=== PATIENT | female | born 1955 | race Caucasian/White ===

== ENCOUNTER 2020-11-29 21:27 | Emergency (ER) | payer MEDICARE, OTHER ==
[~2020-11-29] VITALS: Ht 167.6 cm; Wt 102.9 kg
[2020-11-29] MEDS ORDERED: SIMV20TA22 PO (21:41)
[2020-11-29] MEDS ORDERED: HYDR-3713 PO (21:41)
[2020-11-29] MEDS ORDERED: LISI20TA33 PO (21:41)
[2020-11-29] MEDS ORDERED: APAP500T10 PO (21:41)
[2020-11-29] MEDS ORDERED: IBUP1TAB6 PO (21:41)
[2020-11-29] MEDS ORDERED: OMEP1CAP73 PO (21:41)
[2020-11-29] MEDS ORDERED: CLIN150C15 PO (21:41)
[2020-11-29] MEDS ORDERED: oxyCODONE 5MG TAB PO ONE (22:40)
[2020-11-29] MEDS ORDERED: ONDANSETRON 4 MG TAB PO ONE (22:40)
[2020-11-29] MEDS ORDERED: ONDA4TAB6 PO (22:43)
[2020-11-29] MEDS ORDERED: OXYC-517 PO (22:43)
[2020-11-29 23:43] VITALS: BP 135/92
== END 2020-11-29 23:45 | disposition home or self-care (01) ==
LOC: M ED 21:27
DX: K04.7 Periapical abscess without sinus (principal); I10 Essential (primary) hypertension; E78.5 Hyperlipidemia, unspecified; Z88.0 Allergy status to penicillin; Z88.2 Allergy status to sulfonamides; Z79.899 Other long term (current) drug therapy

== ENCOUNTER 2021-01-03 14:13 | Emergency (ER) | payer MEDICARE, OTHER ==
[~2021-01-03] VITALS: Ht 167.6 cm; Wt 100.1 kg
[~2021-01-03 14:13] MED LIST: APAP500T10 PO; CLIN150C15 PO; HYDR-3713 PO; IBUP1TAB6 PO; LISI20TA33 PO; OMEP1CAP73 PO; ONDA4TAB6 PO; OXYC-517 PO; SIMV20TA22 PO
[2021-01-03 14:55] LABS: BASO # 0.1 10^3/uL (0.0-0.2); BASO % 1.3 % (0.0-1.0); EOS # 0.1 10^3/uL (0.0-0.5); EOS % 1.3 % (0.0-3.0); HEMATOCRIT 43.4 % (36.0-47.0); HEMOGLOBIN 14.2 g/dl (12.0-15.5); LYMPH # 1.9 10^3/uL (1.5-5.0); LYMPH % 30.8 % (24.0-44.0); MEAN CORPUSCULAR HEMOGLOBIN 29.6 pg (27.0-33.0); MEAN CORPUSCULAR HGB CONC 32.7 g/dl (32.0-36.5); MEAN CORPUSCULAR VOLUME 90.4 fl (80.0-96.0); MONO # 0.5 10^3/uL (0.0-0.8); MONO % 8.1 % (2.0-8.0); NEUTROPHILS # 3.7 10^3/uL (1.5-8.5); NEUTROPHILS % 58.2 % (36.0-66.0); PLATELET COUNT, AUTOMATED 335 10^3/uL (150-450); WHITE BLOOD COUNT 6.3 10^3/uL (4.0-10.0)
[2021-01-03 15:57] LABS: CALCIUM LEVEL 9.8 MG/DL (8.8-10.2); CREATININE FOR GFR 1.22 MG/DL (0.55-1.30); GLOMERULAR FILTRATION RATE 47.1 (>45); POTASSIUM SERUM 5.3 MEQ/L (3.5-5.1)
[2021-01-03] MEDS ORDERED: NS 1,000 ML IV ONE (16:40)
--- NOTE | 2021-01-03 17:46 | REPVR ---
PROCEDURE INFORMATION: Exam: CT Abdomen And Pelvis Without Contrast Exam date and time: 01/03/2021 5:02 PM Age: 65 years old Clinical indication: Abdominal pain; Additional info: Right flank pain TECHNIQUE: Imaging protocol: Computed tomography of the abdomen and pelvis without contrast. Radiation optimization: All CT scans at this facility use at least one of these dose optimization techniques: automated exposure control; mA and/or kV adjustment per patient size (includes targeted exams where dose is matched to clinical indication); or iterative reconstruction. COMPARISON: No relevant prior studies available. FINDINGS: Liver: Unremarkable. No mass. Gallbladder and bile ducts: Normal. No calcified stones. No ductal dilation. Pancreas: Unremarkable. No ductal dilation. Spleen: Unremarkable. No splenomegaly. Adrenal glands: Normal. No mass. Kidneys and ureters: There is an indeterminate mass measuring 3 cm within the left kidney lower pole. Follow-up evaluation with contrast enhanced CT scan of the abdomen is recommended. No renal stone or hydronephrosis. The right kidney and right ureter are unremarkable. Stomach and bowel: Large gastric hiatus hernia. The small bowel and colon are unremarkable. No bowel obstruction. Appendix: No evidence of appendicitis. Intraperitoneal space: No free air. No significant fluid collection. Vasculature: Mild atherosclerosis of the abdominal aorta. No aneurysm. Lymph nodes: No enlarged lymph nodes. Urinary bladder: Unremarkable as visualized. Reproductive: Unremarkable as visualized. Bones/joints: Degenerative spondylosis of the lumbar spine. No fracture or suspicious bone lesion. Soft tissues: Unremarkable. IMPRESSION: 1. No acute abnormality. 2. Indeterminate 3 cm diameter right renal mass. Further evaluation with contrast enhanced CT scan of the abdomen is recommended. 3. Large gastric hiatus hernia. COMMENTS: Consistent with the [employer]'s Incidental Findings Committee white paper (J Am Joyce Radiol 2018): Any incidental renal lesion less than 1 cm or classified as too small to characterize, or any incidental cystic renal lesion characterized as simple-appearing, is likely benign. No follow-up imaging is recommended for these lesions per consensus recommendations based on imaging criteria. Electronically signed by: Justin Rosenbaum On 01/03/2021 17:46:03 PM
[2021-01-03] MEDS ORDERED: ISOVUE-370 76% 100ML VIAL As Ordered ONE (19:00)
--- NOTE | 2021-01-03 19:24 | REPVR ---
PROCEDURE INFORMATION: Exam: CT Abdomen With Contrast Exam date and time: 01/03/2021 6:59 PM Age: 65 years old Clinical indication: Abnormal findings; Abnormal radiologic finding of the abdomen; Radiologic exam and body structure: CT ap w. O; Patient HX: Lt renal mass on todays CT; Additional info: Left renal mass unspecified TECHNIQUE: Imaging protocol: Computed tomography images of the abdomen with intravenous contrast. Radiation optimization: All CT scans at this facility use at least one of these dose optimization techniques: automated exposure control; mA and/or kV adjustment per patient size (includes targeted exams where dose is matched to clinical indication); or iterative reconstruction. Contrast material: ISOVUE 370; Contrast volume: 100 ml; Contrast route: INTRAVENOUS (IV); COMPARISON: CT ABD PELVIS W/O CONTRAST 01/03/2021 4:55 PM FINDINGS: Liver: Unremarkable. No mass. Gallbladder and bile ducts: Normal. No calcified stones. No ductal dilation. Pancreas: Unremarkable. No ductal dilation. Spleen: Normal. No splenomegaly. Adrenals: Normal. No mass. Kidneys and ureters: There is an enhancing mass measuring 3 cm within the inferior pole of the left kidney. Urologic consultation is recommended. Either further assessment with MRI or biopsy is recommended. No left renal stone or hydronephrosis. The right kidney is normal. Stomach and bowel: Moderate size gastric hiatus hernia. Intraperitoneal space: Unremarkable. No free air. No significant fluid collection. Lymph nodes: Unremarkable. No enlarged lymph nodes. Vasculature: Unremarkable. No abdominal aortic aneurysm. Bones/joints: Unremarkable.No acute fracture. Soft tissues: Unremarkable. IMPRESSION: Enhancing left renal mass measuring 3 cm in diameter. Urologic consultation is recommended. Either biopsy or further characterization with MRI is recommended. Electronically signed by: Justin Rosenbaum On 01/03/2021 19:24:26 PM
[2021-01-03 19:57] VITALS: BP 121/78
--- NOTE | 2021-01-04 06:35 | ED PDOC ---
Post-Departure Follow-Up ct abd/p with and without contrast faxed to [facility]. dr kat, dr alonso for f u mlg Stefan Erazo MD January 04, 2021 06:35
== END 2021-01-03 20:01 | disposition home or self-care (01) ==
LOC: M ED 14:13
DX: N28.89 Other specified disorders of kidney and ureter (principal); M54.5 Low back pain; K44.9 Diaphragmatic hernia without obstruction or gangrene; I10 Essential (primary) hypertension; K58.9 Irritable bowel syndrome, unspecified; Z88.0 Allergy status to penicillin; Z88.2 Allergy status to sulfonamides; Z79.899 Other long term (current) drug therapy
CPT/HCPCS: 74160; 74176; 80048; 81001; 83605; 85025; 87040; 87077; 96360; 96361; 99283; Q9967

== ENCOUNTER → 2021-01-21 | Outpatient (CLI) | payer MEDICARE, OTHER ==
--- NOTE | 2021-01-21 08:25 | REP ---
INDICATION: CKD, EVAL FOR STENOSIS COMPARISON: None TECHNIQUE: Real time wolf scale ultrasound examination using curved array transducer followed by color Doppler evaluation of the renal vasculature. FINDINGS: Right kidney measures 9.5 x 4.4 x 4.0 cm. And appears normal. Left kidney measures 11.5 x 4.8 x 4.3 cm and there appears to be a 3.3 cm lower pole mass requiring further investigation. Color Doppler evaluation. Peak aortic velocity: 97.2 centimeters/second RIGHT KIDNEY Renal arterial velocity: 117 centimeters/second Renal-aortic ratio: 1.2 Intrarenal resistive indices: 0.66-0.69 Intrarenal acceleration times: 0.038-0.040 LEFT KIDNEY Renal arterial velocity: 97.7 centimeters/second Renal-aortic ratio: 1.0 Intrarenal resistive indices: 0.63-0.70 Intrarenal acceleration times: 0.032-0.046 IMPRESSION: 1. Previously documented left lower pole renal mass lesion requires further investigation. 2. Doppler interegation without sonographic evidence for renal arterial stenosis. <Electronically signed by Jaylen Le > 01/21/21 [id number]
== END ==
LOC: M RAD 07:24
PROVIDERS: ATTEND Family Medicine
DX: N18.9 Chronic kidney disease, unspecified (principal)

== ENCOUNTER 2021-03-16 05:58 | Inpatient (IN) | payer MEDICARE, OTHER ==
[~2021-03-16] VITALS: Ht 167.6 cm; Wt 99.1 kg
[2021-03-16] VITALS (7 sets, daily range): BP systolic 104–116; BP diastolic 57–62
[~2021-03-16 05:58] MED LIST changes: +AZIT-12 PO; +CLAR10CA3 PO; +D31000TA2 PO; +FLON1SPR; +VITATAB73 PO
[2021-03-16] MEDS ORDERED: CIPROFLOXACIN 400 MG in IV 1 EA IV ONE (06:00)
[2021-03-16] MEDS ORDERED: LIDOCAINE 1% MDV 20ML VIAL SQ PRN (06:00)
[2021-03-16] MEDS ORDERED: LR 1,000 ML IV ONE (06:00)
[2021-03-16] MEDS ORDERED: EMLA CREAM 5GM TUBE (LIDOCAINE/PRILOCAINE) TOP PRN (06:00)
[2021-03-16] MEDS ORDERED: BUPIVACAINE HCL 0.25% 30ML VIAL As Ordered ONE (07:08)
[2021-03-16] MEDS ORDERED: LIDOCAINE 1% SDV 30ML VIAL As Ordered ONE (07:08)
[2021-03-16] MEDS ORDERED: MIDAZOLAM INJ 2MG/2ML VIAL (J2250 PER 1MG) As Ordered ONE (07:17)
[2021-03-16] MEDS ORDERED: ROCURONIUM BROMIDE 50 MG/5 ML VIAL As Ordered ONE ×2 (07:17→10:22)
[2021-03-16] MEDS ORDERED: LIDOCAINE 2% 100MG/5ML SDV (FOR ANES.) As Ordered ONE (07:17)
[2021-03-16] MEDS ORDERED: fentaNYL 100 MCG/2 ML INJECTION (J3010) As Ordered ONE ×2 (07:17→08:19)
[2021-03-16] MEDS ORDERED: ONDANSETRON 4MG/2ML VIAL As Ordered ONE (07:17)
[2021-03-16] MEDS ORDERED: propofoL 200 MG/20 ML VIAL As Ordered ONE (07:17)
[2021-03-16] MEDS ORDERED: METOCLOPRAMIDE INJ 10MG/2ML VIAL (J2765 PER 1) As Ordered ONE (07:17)
[2021-03-16] MEDS ORDERED: SCOPOLAMINE 1MG TRANSDERMAL PATCH TOP ONE (07:20)
[2021-03-16] MEDS ORDERED: PERCOCET 5MG/325MG TAB PO PRN (07:25)
[2021-03-16] MEDS ORDERED: MORPHINE 2 MG/ML 1ML VIAL (J2270) IV PRN (07:25)
[2021-03-16] MEDS ORDERED: ceFAZolin SOD 2 GM in IV 1 EA IV ONE (07:25)
[2021-03-16] MEDS ORDERED: ACETAMINOPHEN TAB 650MG DOSE (2X325MG) PO PRN (07:25)
[2021-03-16] MEDS ORDERED: MANNITOL 25% 12.5 GM/50 ML VIAL (J2150) As Ordered ONE (09:37)
[2021-03-16] MEDS ORDERED: HYDROmorphone HCL 2 MG/ML 1ML VIAL (J1170) As Ordered ONE (09:53)
[2021-03-16] MEDS ORDERED: ACETAMINOPHEN 1000MG 100ML IV BTL (OFIRMEV) (J0131 PER 10MG) As Ordered ONE (09:53)
[2021-03-16] MEDS ORDERED: dexameTHASONE 4 MG/ML 1ML VIAL (J1100 PER 1MG) As Ordered ONE (09:53)
[2021-03-16] MEDS ORDERED: SUGAMMADEX SODIUM 500 MG/5 ML VIAL (BRIDION) As Ordered ONE (10:59)
[2021-03-16] MEDS ORDERED: fentaNYL 100 MCG/2 ML INJECTION (J3010) IV PRN (12:10)
[2021-03-16] MEDS ORDERED: ONDANSETRON 4MG/2ML VIAL IV PRN (12:10)
[2021-03-16] MEDS ORDERED: LR 1,000 ML IV SCH (12:10)
--- NOTE | 2021-03-16 12:22 | ROOPDOC ---
[facility] Report Of Operation Report of Operation DATE OF PROCEDURE: 03/16/21 PREPROCEDURE DIAGNOSIS: Left renal neoplasm. POSTPROCEDURE DIAGNOSIS: Left renal neoplasm. PROCEDURE: Left robotic-assisted laparoscopic partial nephrectomy with intraoperative ultrasound for tumor mapping. SURGEON: Edie Otero MD LEAD NET SOFTWARE DEVELOPER: Tequila Sanchez ANESTHESIA: General OPERATIVE INDICATIONS: This is a 65 year old female recently found to have an approximately 3.3cm enhancing mass on her left kidney. She was brought to the operating room today for treatment. DESCRIPTION OF PROCEDURE: The patient was brought to the operating room where general anesthesia was induced. Prophylactic antibiotics were infused. A Perez catheter was inserted into the bladder under sterile conditions and the balloon was filled with sterile water. She was then placed in the right lateral decubitus position. All pressure points were appropriately padded and an axillary roll was placed. We then secured the patient to the table with tape. Her abdomen was then prepped and draped in the usual sterile fashion. Next, an 8mm incision was made in line with the 11th rib along the lateral border of the rectus. Pneumoperitoneum was achieved with a Veress needle. Next, an 8mm port was placed for the camera. At this point, the left robotic port was placed off the costal margin. Two right hand robotic ports were then placed with one between the anterior superior iliac spine and the hip and the other one just caudal to the camera port. Last the 12 mm drafter assistant port was placed inferior and medial to the camera port. The robot was then docked. The spleen was then dissected off of Gerota's fascia. Next the left colon was dissected off of Gerota's fascia. At this point the left gonadal vein was identified and it was traced cephalad to its insertion into the left renal vein. This was carefully dissected and just inferior to the renal vein, the left renal artery was identified. In order to reach the artery I ligated the gonadal vein with Weck clips and transected in between the clips. The renal artery was carefully dissected. Next I had our automotive customer experience advisor administer 12.5g of mannitol. Gerota's fascia was then opened and I defatted the kidney. On the inferior aspect of the kidney the tumor was seen. Ultrasound was then utilized to richi the boundaries of the mass. Next 2 bulldog clamps were placed on the renal artery and we began resecting the mass. The mass was resected completely and it appeared that we had a good margin. Once the mass was removed, the renorrhaphy was performed first by ligating all vessels in the base of resection with a #2-0 Vicryl suture using figure of eight stitches. The capsule of the kidney was then reapproximated using #0-vicryl suture with Weck clips to cinch down the suture. Once this was done the clamps were removed and hemostasis was excellent. The warm ischemia time was 34 minutes. Next Gloria was applied to the resection bed and the tumor was placed in an endocatch bag. A Andrew Rowell drain was positioned just lateral to the kidney. The robot was undocked after confirming hemostasis within the abdomen. The specimen was then extracted from the 12mm port site after it was extended. The fascia of this incision was then closed with a running #0 Vicryl suture. The abdomen was observed again and there was no bleeding from the left kidney or the hilum. We then removed all the ports under direct vision and there was no bleeding from any of the port sites. At this point, all the incisions were thoroughly irrigated. We then closed the skin of each site using a running #4-0 subcuticular Monocryl stitch. The Andrew Rowell drain was secured to the skin using #3-0 Ethilon suture. Local anesthetic was then applied to each incision and Dermabond was then applied and this marked the conclusion of the procedure. The patient was then taken out of the left lateral decubitus position, awakened from anesthesia and transported to the recovery room in stable condition. ESTIMATED BLOOD LOSS: 200 mL INTRAOPERATIVE COMPLICATIONS: None SPECIMENS: Left renal neoplasm WARM ISCHEMIA TIME: 34 minutes NORMAL LEFT RENAL PARENCHYMA SPARED: approximately 95% PLAN: The patient will be admitted to the hospital postoperatively and she will be discharged home once her renal function is stable and she is tolerating a regular diet. EDIE OTERO MD Mar 16, 2021 07:41
[2021-03-16] MEDS: oxyCODONE 5MG TAB PO PRN ×2 (12:25→12:56)
[2021-03-16] MEDS: MEPERIDINE INJ 25 MG/ML VIAL (J2175) IV PRN ×2 (12:26→12:33)
[2021-03-16] MEDS: ONDANSETRON 4MG/2ML VIAL IV PRN ×2 (12:26→21:02)
[2021-03-16 12:38] LABS: HEMATOCRIT 39.6 % (36.0-47.0); HEMOGLOBIN 13.3 g/dl (12.0-15.5); MEAN CORPUSCULAR HEMOGLOBIN 29.7 pg (27.0-33.0); MEAN CORPUSCULAR HGB CONC 33.6 g/dl (32.0-36.5); MEAN CORPUSCULAR VOLUME 88.4 fl (80.0-96.0); PLATELET COUNT, AUTOMATED 286 10^3/uL (150-450); RED BLOOD COUNT 4.48 10^6/uL (4.00-5.40); WHITE BLOOD COUNT 13.5 10^3/uL (4.0-10.0)
[2021-03-16 13:05] LABS: CALCIUM LEVEL 8.9 MG/DL (8.8-10.2); CREATININE FOR GFR 1.3 MG/DL (0.55-1.30); GLOMERULAR FILTRATION RATE 43.8 (>45); POTASSIUM SERUM 4.4 MEQ/L (3.5-5.1)
[2021-03-16] MEDS: NS 1,000 ML IV SCH (14:10)
[2021-03-16] MEDS: METOCLOPRAMIDE INJ 10MG/2ML VIAL (J2765 PER 1) IV PRN (15:45)
[2021-03-16] MEDS: ceFAZolin SOD 1 GM in D5W MINI-BAG PLUS 50 ML IV SCH ×2 (15:45→23:16)
[2021-03-16] MEDS: PERCOCET 5MG/325MG TAB PO PRN ×2 (17:43→23:18)
[2021-03-16] MEDS ORDERED: lisinopriL 40 MG TAB PO SCH (21:00)
[2021-03-16] MEDS ORDERED: OMEPRAZOLE 20 MG CAP PO SCH (21:00)
[2021-03-16] MEDS ORDERED: SIMVASTATIN 20 MG TAB PO SCH (21:00)
[2021-03-16] MEDS: DOCUSATE SODIUM 100MG CAPSULE PO SCH (21:02)
[2021-03-17] VITALS: BP 107/65
[2021-03-17] MEDS: METOCLOPRAMIDE INJ 10MG/2ML VIAL (J2765 PER 1) IV PRN (02:26)
[2021-03-17 04:00] VITALS: BP 108/64
[2021-03-17] MEDS: PERCOCET 5MG/325MG TAB PO PRN ×2 (04:05→09:24)
[2021-03-17 06:00] VITALS: BP 109/64
[2021-03-17] MEDS: NS 1,000 ML IV SCH (06:07)
[2021-03-17 06:42] LABS: HEMATOCRIT 35.7 % (36.0-47.0); MEAN CORPUSCULAR HEMOGLOBIN 30.1 pg (27.0-33.0); MEAN CORPUSCULAR HGB CONC 33.6 g/dl (32.0-36.5); MEAN CORPUSCULAR VOLUME 89.5 fl (80.0-96.0); PLATELET COUNT, AUTOMATED 318 10^3/uL (150-450); RED BLOOD COUNT 3.99 10^6/uL (4.00-5.40); WHITE BLOOD COUNT 16.5 10^3/uL (4.0-10.0)
[2021-03-17 07:07] LABS: CALCIUM LEVEL 9.1 MG/DL (8.8-10.2); CREATININE FOR GFR 1.21 MG/DL (0.55-1.30); GLOMERULAR FILTRATION RATE 47.5 (>45); POTASSIUM SERUM 4.6 MEQ/L (3.5-5.1)
--- NOTE | 2021-03-17 07:49 | IPNPDOC ---
Subjective Review oF Systems Chief Complaint The patient is a 65-year-old female admitted with a reason for visit of Renal Mass. Events since Last Encounter No acute events o/n. Had nausea yesterday, but this has improved. No emesis. Has not ambulated yet. Good pain control. No f/c/ns. Objective Physical Examination General Exam: Alert, Cooperative, No Acute Distress ABDOMEN EXAM: Soft, Tenderness (mild), Other (incisions clean/dry/intact; GÉNESIS w/ serosanguinous output) Skin Exam: Nl turgor and temperature Neuro Exam: Normal Speech Psych Exam: Mental status NL, Mood NL Other physical findings catheter draining clear yellow urine Vital Signs/I&O Vital Signs Date Time Temp Pulse Resp B/P (MAP) Pulse Ox O2 Delivery O2 Flow Rate FiO2 03/17/21 06:00 97.8 80 16 109/64 (79) 94 Room Air 03/16/21 12:56 2.0 I&O- Last 24 Hours up to 6 AM 03/17/21 06:00 Intake Total 4310 ml Output Total 1685 ml Balance 2625 ml Laboratory Data Labs 24H Laboratory Tests 2 03/16/21 12:25: Nucleated Red Blood Cells % (auto) 0.0, Anion Gap 5L, Glomerular Filtration Rate 43.8L, Calcium Level 8.9 03/17/21 05:59: Nucleated Red Blood Cells % (auto) 0.0, Anion Gap 8, Glomerular Filtration Rate 47.5, Calcium Level 9.1 CBC/BMP Laboratory Tests 03/16/21 12:25 03/17/21 05:59 Assessment/Plan Date Seen The patient was seen on 03/17/21. Patient Summary This is a 65 y/o F POD1 s/p L robotic partial nephrectomy. Doing well. Hb stable at 12. Cr 1.2. Good UOP. Normal GÉNESIS output. Plan/VTE VTE Prophylaxis Ordered?: Yes VTE Exclusion Mechanical Proph: N/A:VTE Prophy Ordered Plan - d/c Perez - d/c IVF - percocet prn pain - continue home meds - ambulate - incentive spirometry - SCDs when in bed - strict I/Os - advance diet as tolerated - possible discharge home this afternoon EDIE OTERO MD Mar 17, 2021 07:49
[2021-03-17] MEDS ORDERED: FLUTICASONE PROP 0.05% NASAL SPRAY 16 GM (FLONASE) NARES SCH (09:00)
[2021-03-17] MEDS: DOCUSATE SODIUM 100MG CAPSULE PO SCH (09:24)
[2021-03-17] MEDS: ONDANSETRON 4MG/2ML VIAL IV PRN (09:24)
[2021-03-17 10:00] VITALS: BP 106/64
[2021-03-17 14:00] VITALS: BP 107/64
[2021-03-17] MEDS ORDERED: PERCOCET PO (16:22)
[2021-03-17] MEDS ORDERED: ZOFR4TAB16 PO (16:22)
--- NOTE | 2021-03-17 17:05 | DSES ---
DISCHARGE SUMMARY DATE OF ADMISSION: 03/16/2021 DATE OF DISCHARGE: 03/17/2021 PREOPERATIVE ADMITTING PHYSICIAN: Dr. Sam Encarnacion DISCHARGING PHYSICIAN: Dr. Sam Encarnacion ADMISSION DIAGNOSIS: Left renal neoplasm. DISCHARGE DIAGNOSIS: Left renal cell carcinoma. PROCEDURE PERFORMED: A left robotic-assisted laparoscopic partial nephrectomy. HISTORY OF PRESENT ILLNESS: This is a 65-year-old female who underwent the above-listed procedure for a left renal neoplasm. She was admitted to the hospital postoperatively. HOSPITALIZATION COURSE: The patient underwent the above-listed procedure on 03/16/2021. She was admitted postoperatively. Her postoperative course was unremarkable. On postoperative day #1, all of her labs were within acceptable limits. Specifically, her hemoglobin was stable at 12. Her serum creatinine was 1.2. She had very good urine output and normal output from her Andrew-Rowell drain. Her Perez catheter was removed on postoperative day #1, and she voided without any difficulty. She started ambulating and did so without difficulty. Her pain was well controlled with oral pain medication. Her diet was advanced, and she tolerated a regular diet. By the afternoon of postoperative day #1, she was deemed ready for discharge home. Her Andrew-Rowell drain was removed, since she had normal outputs. She was discharged home with the plan for her to followup in the urology clinic in about 10 days for pathology results. [place]
== END 2021-03-17 17:05 | disposition home or self-care (01) | DRG 658 ==
LOC: M OR 05:58 → M MSPAV 14:55
PROVIDERS: ADMIT Urology; ATTEND Urology
PROC: BT42ZZZ Ultrasonography of Left Kidney (ICD-10-PCS; 2021-03-16)
PROC: 8E0W4CZ Robotic Assisted Procedure of Trunk Region, Percutaneous Endoscopic Approach (ICD-10-PCS; 2021-03-16)
PROC: 0TB14ZZ Excision of Left Kidney, Percutaneous Endoscopic Approach (ICD-10-PCS; principal; 2021-03-16 07:30)
DX: C64.1 Malignant neoplasm of right kidney, except renal pelvis (principal); E55.9 Vitamin D deficiency, unspecified; I12.9 Hypertensive chronic kidney disease with stage 1 through stage 4 chronic kidney disease, or unspecified chronic kidney disease; N18.31 Chronic kidney disease, stage 3a

== ENCOUNTER → 2021-10-26 | Outpatient (CLI) | payer MEDICARE, OTHER ==
[~2021-10-26] MED LIST changes: -CLIN150C15 PO; +CLIN150C17 PO; -D31000TA2 PO; +GASTROGRAFIN SOLUTION 30ML (Q9963) As Ordered ONE; +ISOVUE-370 76% 100ML VIAL As Ordered ONE; +PERCOCET PO; +VITA100093 PO; +ZOFR4TAB16 PO
== END ==
LOC: M RAD 12:27
PROVIDERS: ATTEND Urology
DX: C64.9 Malignant neoplasm of unspecified kidney, except renal pelvis (principal)
CPT/HCPCS: 71046; 74177; Q9963; Q9967

== ENCOUNTER 2021-11-15 11:30 | Day surgery (SDC) | payer MEDICARE, OTHER ==
[~2021-11-15] VITALS: Ht 170.2 cm; Wt 96.6 kg
[~2021-11-15 11:30] MED LIST changes: +D 1010002 PO; +DICY20TA3 PO; +DOCU-153 PO; -GASTROGRAFIN SOLUTION 30ML (Q9963) As Ordered ONE; -ISOVUE-370 76% 100ML VIAL As Ordered ONE; +LISI40TA4 PO; +NS 1,000 ML IV ONE; +SUPETAB PO
[2021-11-15] MEDS ORDERED: LIDOCAINE 2% 100MG/5ML SDV (FOR ANES.) As Ordered ONE (13:30)
[2021-11-15] MEDS ORDERED: propofoL 200 MG/20 ML VIAL As Ordered ONE ×2 (13:30→13:36)
[2021-11-15] MEDS ORDERED: LABETALOL 100MG/20ML VIAL As Ordered ONE (13:36)
[2021-11-15 14:31] VITALS: BP 133/62
== END 2021-11-15 14:33 | disposition home or self-care (01) ==
LOC: M OPP 11:30
PROVIDERS: ATTEND Internal Medicine Gastroenterology
DX: Z12.11 Encounter for screening for malignant neoplasm of colon (principal); Z86.010 Personal history of colon polyps; Z80.0 Family history of malignant neoplasm of digestive organs; D12.2 Benign neoplasm of ascending colon; K57.30 Diverticulosis of large intestine without perforation or abscess without bleeding; K64.8 Other hemorrhoids; Z79.899 Other long term (current) drug therapy; Z88.0 Allergy status to penicillin; Z88.1 Allergy status to other antibiotic agents; Z88.2 Allergy status to sulfonamides; Z85.528 Personal history of other malignant neoplasm of kidney; N18.30 Chronic kidney disease, stage 3 unspecified; Z87.891 Personal history of nicotine dependence

== ENCOUNTER → 2022-05-24 | Outpatient (CLI) | payer MEDICARE, OTHER ==
[~2022-05-24] MED LIST changes: -NS 1,000 ML IV ONE
== END ==
LOC: M RAD 14:33
PROVIDERS: ATTEND Nurse Practitioner Family
DX: N18.32 Chronic kidney disease, stage 3b (principal)

== ENCOUNTER 2022-09-04 21:45 | Emergency (ER) | payer MEDICARE, OTHER ==
[~2022-09-04] VITALS: Ht 167.6 cm; Wt 100.4 kg
[2022-09-04] MEDS ORDERED: VITA500C24 PO (22:13)
[2022-09-05 03:49] VITALS: BP 136/81
== END 2022-09-05 04:08 | disposition left against medical advice (07) ==
LOC: M ED 21:45
DX: Z53.21 Procedure and treatment not carried out due to patient leaving prior to being seen by health care provider (principal)

== ENCOUNTER → 2022-11-02 | Outpatient (CLI) | payer MEDICARE, OTHER ==
[~2022-11-02] MED LIST changes: +ISOVUE-370 76% 100ML VIAL As Ordered ONE; +VITA500C24 PO
== END ==
LOC: M RAD 13:23
PROVIDERS: ATTEND Urology
DX: C64.9 Malignant neoplasm of unspecified kidney, except renal pelvis (principal); K76.0 Fatty (change of) liver, not elsewhere classified
CPT/HCPCS: 71046; 74170; Q9967

== ENCOUNTER → 2023-01-03 | Outpatient (REF) | payer MEDICARE, OTHER ==
[~2023-01-03] MED LIST changes: -ISOVUE-370 76% 100ML VIAL As Ordered ONE
== END ==
LOC: M LAB REF 17:38
PROVIDERS: ATTEND Internal Medicine Endocrinology, Diabetes & Metabolism
DX: R89.6 Abnormal cytological findings in specimens from other organs, systems and tissues (principal); E04.2 Nontoxic multinodular goiter

== ENCOUNTER → 2023-04-13 | Outpatient (REF) | payer MEDICARE, OTHER | LOC: M LAB REF 17:23 | PROVIDERS: ATTEND Internal Medicine Endocrinology, Diabetes & Metabolism | DX: E04.2 Nontoxic multinodular goiter (principal) ==

== ENCOUNTER → 2023-07-06 | Outpatient (CLI) | payer MEDICARE, OTHER | LOC: M WHC 10:03 | PROVIDERS: ATTEND Internal Medicine Gastroenterology | DX: R13.10 Dysphagia, unspecified (principal) ==

== ENCOUNTER 2023-08-29 10:43 | Day surgery (SDC) | payer MEDICARE, OTHER ==
[~2023-08-29] VITALS: Ht 167.6 cm; Wt 94.3 kg
[~2023-08-29 10:43] MED LIST changes: +AMIT10TA7 PO; +CARA1TAB6 PO; +LIDOCAINE 2% 100MG/5ML SDV (FOR ANES.) As Ordered ONE; +MAG100TA PO; +MM S100C PO; +NS 1,000 ML IV ONE; +propofoL 200 MG/20 ML VIAL As Ordered ONE
[2023-08-29] MEDS ORDERED: fentaNYL 100 MCG/2 ML INJECTION As Ordered ONE (11:58)
[2023-08-29 12:38] VITALS: TEMP 97
[2023-08-29 13:01] VITALS: BP 140/76; O2SAT 98
== END 2023-08-29 13:03 | disposition home or self-care (01) ==
LOC: M OPP 10:43
PROVIDERS: ATTEND Internal Medicine Gastroenterology
DX: Z12.11 Encounter for screening for malignant neoplasm of colon (principal); Z86.010 Personal history of colon polyps; Z80.0 Family history of malignant neoplasm of digestive organs; D37.4 Neoplasm of uncertain behavior of colon; K31.89 Other diseases of stomach and duodenum; K29.80 Duodenitis without bleeding; K30 Functional dyspepsia; K44.9 Diaphragmatic hernia without obstruction or gangrene; R14.0 Abdominal distension (gaseous); Z85.59 Personal history of malignant neoplasm of other urinary tract organ; Z85.528 Personal history of other malignant neoplasm of kidney; Z79.1 Long term (current) use of non-steroidal anti-inflammatories (NSAID); Z79.02 Long term (current) use of antithrombotics/antiplatelets; Z79.2 Long term (current) use of antibiotics; Z79.899 Other long term (current) drug therapy; Z88.0 Allergy status to penicillin; Z88.1 Allergy status to other antibiotic agents; Z88.2 Allergy status to sulfonamides
CPT/HCPCS: 43239; 88305; G0105; J3010

== ENCOUNTER → 2023-09-05 | Outpatient (CLI) | payer MEDICARE, OTHER ==
[~2023-09-05] MED LIST changes: -LIDOCAINE 2% 100MG/5ML SDV (FOR ANES.) As Ordered ONE; -NS 1,000 ML IV ONE; -propofoL 200 MG/20 ML VIAL As Ordered ONE
== END ==
LOC: M RAD 11:43
PROVIDERS: ATTEND Internal Medicine Gastroenterology
DX: R10.13 Epigastric pain (principal)
CPT/HCPCS: 78227; A9537

== ENCOUNTER → 2023-10-09 | Outpatient (CLI) | payer MEDICARE, OTHER ==
[~2023-10-09] MED LIST changes: -DOCU-153 PO; +PROHANCE 279.3MG/ML 15ML VIAL As Ordered ONE; +PROHANCE 279.3MG/ML 5ML VIAL As Ordered ONE; +STOO100C30 PO
== END ==
LOC: M RAD 08:48
PROVIDERS: ATTEND Internal Medicine Gastroenterology
DX: K80.20 Calculus of gallbladder without cholecystitis without obstruction (principal); R10.13 Epigastric pain
CPT/HCPCS: A9576; C8902

== ENCOUNTER → 2023-11-07 | Outpatient (CLI) | payer MEDICARE, OTHER ==
[~2023-11-07] MED LIST changes: +ISOVUE-370 76% 100ML VIAL As Ordered ONE; -PROHANCE 279.3MG/ML 15ML VIAL As Ordered ONE; -PROHANCE 279.3MG/ML 5ML VIAL As Ordered ONE
== END ==
LOC: M RAD 09:32
PROVIDERS: ATTEND Urology
DX: C64.9 Malignant neoplasm of unspecified kidney, except renal pelvis (principal)
CPT/HCPCS: 71046; 74170; Q9967

== ENCOUNTER → 2024-01-11 | Outpatient (CLI) | payer MEDICARE, OTHER ==
[~2024-01-11] MED LIST changes: +DICY1CAP8 PO; -ISOVUE-370 76% 100ML VIAL As Ordered ONE; +ONDA-83 PO
== END ==
LOC: M EKG 07:59
PROVIDERS: ATTEND Anesthesiology
DX: Z01.818 Encounter for other preprocedural examination (principal)

== ENCOUNTER 2024-01-16 11:16 | Day surgery (SDC) | payer MEDICARE, OTHER ==
[~2024-01-16] VITALS: Ht 167.6 cm; Wt 95.7 kg
[~2024-01-16 11:16] MED LIST changes: +ONDA-282 PO; -ONDA4TAB6 PO
[2024-01-16] MEDS: LR 1,000 ML IV SCH (12:11)
[2024-01-16] MEDS: SCOPOLAMINE 1MG TRANSDERMAL PATCH TOP ONE (13:26)
[2024-01-16] MEDS ORDERED: LIDOCAINE 2% 100MG/5ML SDV (FOR ANES.) As Ordered ONE (14:03)
[2024-01-16] MEDS ORDERED: ROCURONIUM BROMIDE 50MG/5ML VIAL As Ordered ONE (14:03)
[2024-01-16] MEDS ORDERED: ACETAMINOPHEN 1000MG 100ML IV BAG As Ordered ONE (14:03)
[2024-01-16] MEDS ORDERED: ONDANSETRON 4MG 2ML VIAL As Ordered ONE (14:03)
[2024-01-16] MEDS ORDERED: fentaNYL 100 MCG/2 ML INJECTION As Ordered ONE (14:03)
[2024-01-16] MEDS ORDERED: propofoL 200 MG/20 ML VIAL As Ordered ONE (14:03)
[2024-01-16] MEDS ORDERED: MIDAZOLAM INJ 2MG/2ML VIAL As Ordered ONE (14:04)
[2024-01-16] MEDS ORDERED: METOCLOPRAMIDE INJ 10MG/2ML VIAL As Ordered ONE (14:57)
[2024-01-16] MEDS: ceFAZolin SOD 2 GM in IV 1 EA IV ONE (15:00)
[2024-01-16] MEDS ORDERED: HYDROmorphone HCL 2MG/ML 1ML VIAL As Ordered ONE (15:24)
[2024-01-16] MEDS ORDERED: SUGAMMADEX SODIUM 500 MG/5 ML VIAL (BRIDION) As Ordered ONE (15:33)
[2024-01-16] MEDS ORDERED: LABETALOL 100MG/20ML VIAL As Ordered ONE (15:44)
[2024-01-16] MEDS: ISOVUE-300 61% 100ML VIAL As Ordered ONE (15:52)
[2024-01-16] MEDS: GLUCAGON INJ 1MG VIAL As Ordered ONE (15:52)
[2024-01-16] MEDS ORDERED: fentaNYL 100 MCG/2 ML INJECTION IV PRN (15:55)
[2024-01-16] MEDS ORDERED: LR 1,000 ML IV SCH (15:55)
[2024-01-16] MEDS ORDERED: HYDROMORPHONE HCL 0.5 MG/ 0.5 ML SYRINGE IV PRN (15:55)
[2024-01-16] MEDS ORDERED: NS 1,000 ML IV SCH (16:05)
[2024-01-16] MEDS ORDERED: PERCOCET 5MG/325MG TAB PO PRN (16:05)
[2024-01-16] MEDS: ONDANSETRON 4MG 2ML VIAL IV PRN (16:29)
[2024-01-16] MEDS: oxyCODONE 5MG TAB PO PRN (16:57)
[2024-01-16 18:10] VITALS: BP 136/82; TEMP 97; O2SAT 96
== END 2024-01-16 18:12 | disposition home or self-care (01) ==
LOC: M SDC 11:16
PROVIDERS: ATTEND Surgery
DX: K80.20 Calculus of gallbladder without cholecystitis without obstruction (principal); I12.9 Hypertensive chronic kidney disease with stage 1 through stage 4 chronic kidney disease, or unspecified chronic kidney disease; N18.30 Chronic kidney disease, stage 3 unspecified; E03.9 Hypothyroidism, unspecified; E78.5 Hyperlipidemia, unspecified; K57.92 Diverticulitis of intestine, part unspecified, without perforation or abscess without bleeding; K44.9 Diaphragmatic hernia without obstruction or gangrene; K58.8 Other irritable bowel syndrome; K21.9 Gastro-esophageal reflux disease without esophagitis; B18.2 Chronic viral hepatitis C; Z79.899 Other long term (current) drug therapy; Z85.528 Personal history of other malignant neoplasm of kidney; Z87.891 Personal history of nicotine dependence; Z88.0 Allergy status to penicillin; Z88.2 Allergy status to sulfonamides; Z88.1 Allergy status to other antibiotic agents
CPT/HCPCS: 47562; 88304; J0131; J0665; J0690; J1100; J1170; J1920; J2250; J2405; J2765; J3010; S2900

== ENCOUNTER → 2024-03-19 | Outpatient (REF) | payer MEDICARE, OTHER ==
[2024-03-19 18:28] LABS: PERCENT SATURATION 26.8 % (13.2-45.0)
[2024-03-19 18:30] LABS: FERRITIN 17.7 NG/ML (7.3-270.7)
== END ==
LOC: M LAB REF 17:12
PROVIDERS: ATTEND Nurse Practitioner Family
DX: D50.9 Iron deficiency anemia, unspecified (principal)

== ENCOUNTER → 2024-11-06 | Outpatient (CLI) | payer MEDICARE, OTHER ==
[~2024-11-06] MED LIST changes: +ISOVUE-370 76% 100ML VIAL As Ordered ONE
== END ==
LOC: M RAD 10:02
PROVIDERS: ATTEND Urology
DX: C64.9 Malignant neoplasm of unspecified kidney, except renal pelvis (principal); K44.9 Diaphragmatic hernia without obstruction or gangrene; I70.0 Atherosclerosis of aorta
CPT/HCPCS: 71046; 74170; Q9967